=== PATIENT | female | born 1990 | race Caucasian/White ===

== ENCOUNTER 2020-09-28 23:37 | Emergency (ER) | payer MEDICAID ==
[2020-09-29] MEDS ORDERED: Acetaminophen/oxyCODONE 325-5 MG Tab PO ONE (00:39)
[2020-09-29] MEDS ORDERED: Ondansetron 4 MG Tab.DIS ONE (01:24)
--- NOTE | 2020-09-29 02:31 | EDM.PDOC ---
ED HPI GENERAL MEDICAL PROBLEM - General Chief Complaint: Neurological Problem Stated Complaint: PAIN IN THROAT Time Seen by Provider: 09/29/20 00:30 Source of Information: Reports: Patient, Family History Limitations: Reports: No Limitations - History of Present Illness INITIAL COMMENTS - FREE TEXT/NARRATIVE: Patient is a 30-year-old female who presents complaining of left-sided neck pain that has been present for the past month after she had her left vagal nerve stimulator battery change. Patient was told by the surgeon that he may have had the wires too tight and she is worried that one of the wires may have broke and she was told if that were to happen this could puncture a artery so she should immediately come to the emergency department for evaluation. Patient thinks there may be slight swelling to the area and is complaining of pain that has been there again for the last 4 weeks. She states pain is worse with movement. She denies any trouble swallowing or any difficulty breathing. She did have a seizure earlier today which she states she has not had an a long time because the vagal stimulator has been doing its job. Her neurosurgeon advised her to m anually trigger the vagal stimulator until he follows up with her and make some changes to it. Onset: Unknown/Unsure Duration: Getting Worse Location: Reports: Neck Quality: Reports: Ache, Pressure Severity: Moderate Improves with: Reports: Rest Worsens with: Reports: Movement Associated Symptoms: Reports: No Other Symptoms Anterior Neck Pain Score (Numeric/FACES): 8 - Related Data Allergies Allergy/AdvReac Type Severity Reaction Status Date / Time latex Allergy Anaphylactic Verified 09/29/20 00:38 Shock sulfamethoxazole Allergy Rash Verified 09/29/20 00:40 [From ] trimethoprim [From ] Allergy Rash Verified 09/29/20 00:40 Home Meds: Home Meds ClonazePAM [KlonoPIN] 0.5 mg PO TID PRN 09/29/20 [History] SUMAtriptan succinate [Imitrex] 100 mg PO BID PRN 09/29/20 [History] Zonisamide [Zonegran] 400 mg PO BID 09/29/20 [History] Past Medical History Neurological History: Reports: CVA, Migraines, Seizure - Infectious Disease History Infectious Disease History: Reports: Novel Coronavirus - Past Surgical History Neurological Surgical History: Reports: Other (See Below) Other Neurological Surgeries/Procedures: Vagal Nerve Stimulator implanted Social & Family History - Family History Family Medical History: No Pertinent Family History - Tobacco Use Tobacco Use Status *Q: Never Tobacco User Second Hand Smoke Exposure: No - Caffeine Use Caffeine Use: Reports: Energy Drinks - Recreational Drug Use Recreational Drug Use: No ED ROS GENERAL - Review of Systems Review Of Systems: Comprehensive ROS is negative, except as noted in HPI. - Physical Exam Exam: See Below Exam Limited By: No Limitations General Appearance: Alert, No Apparent Distress Neck: Supple, Full Range of Motion, Tender Lateral. No: Carotid Bruit, Lymph adenopathy (L) Respiratory/Chest: No Respiratory Distress Cardiovascular: Regular Rate, Rhythm Neuro Exam (Abbreviated): Alert, Oriented Extremities: Normal Inspection Psychiatric: Normal Affect, Normal Mood Skin Exam: Warm, Dry, Normal Color Course - Vital Signs Text/Narrative:: Soft tissue plain film of her neck shows that her left vagal nerve stimulator as all of its leads intact. There is no swelling in the area. These leads are extremely thin approximately the size of a horse hair. Patient had been given pain medicine earlier and she is informed that the leads are intact and I will give her some additional pain medicine to go home with until she can follow-up with her neurosurgeon. She will return to ER if her symptoms are worse. Last Recorded V/S: Last Vital Signs Temp 97.1 F 09/29/20 00:37 Pulse 69 09/29/20 00:37 Resp 14 09/29/20 00:37 BP 118/83 09/29/20 00:37 Pulse Ox 100 09/29/20 00:37 - Orders/Labs/Meds Orders: Active Orders 24 hr Category Date Time Status Neck Soft Tissue [CR] Stat Exams 09/29/20 01:28 Taken Meds: Medications Discontinued Medications Generic Name Dose Route Start Last Admin Trade Name Jayesh PRN Reason Stop Dose Admin Ondansetron HCl Confirm 09/29/20 01:24 09/29/20 01:27 Ondansetron 4 Mg Tab.Dis Administered 09/29/20 01:25 4 mg Dose Administration 4 mg .ROUTE .STK-MED ONE Oxycodone/Acetaminophen 1 tab 09/29/20 00:39 09/29/20 00:47 Acetaminophen/Oxycodone 325-5 Mg Tab PO 09/29/20 00:40 1 tab ONETIME ONE Administration Departure - Departure Time of Disposition: 02:31 Disposition: Home, Self-Care 01 Condition: Good Clinical Impression: Neck pain on left side, Seizure disorder - Discharge Information Instructions: Epilepsy, [id number] Referrals: PCP,Not In Area [Primary Care Provider] - Additional Instructions: Naprosyn with meals. Dewey as needed. Follow-up with neurosurgeon if symptoms continue. Return to ER if worse. Sepsis Event Note (ED) - Evaluation Sepsis Screening Result: No Definite Risk - Focused Exam Vital Signs: Vital Signs Temp Pulse Resp BP Pulse Ox 09/29/20 00:37 97.1 F 69 14 118/83 100 - My Orders Last 24 Hours: My Active Orders 09/29/20 01:28 Neck Soft Tissue [CR] Stat - Assessment/Plan Last 24 Hours: My Active Orders 09/29/20 01:28 Neck Soft Tissue [CR] Stat
--- NOTE | 2020-09-29 08:52 | CR ---
Neck: Lateral and AP view of the neck was obtained. Comparison: No prior studies are available to determine stability of this finding. Findings: Electrostimulating device is noted within the left neck. Slightly abnormal curvature of the cervical spine is seen possibly due to muscle spasm. No abnormal calcifications or soft tissue abnormality is appreciated. Impression: 1. Electrostimulating device within the left neck. 2. Abnormal curvature of the cervical spine possibly due to muscle spasm. Please correlate with the patient's symptoms. Diagnostic code #2 I mostly agree with preliminary report from [facility], finalized on 09/29/20, 3:10 AM CDT, code 2
== END 2020-09-29 02:40 | disposition home or self-care (01) ==
LOC: JD.ED 23:37
DX: M54.2 Cervicalgia (principal); G40.909 Epilepsy, unspecified, not intractable, without status epilepticus; Z86.16 Personal history of COVID-19; Z91.040 Latex allergy status; Z88.1 Allergy status to other antibiotic agents
CPT/HCPCS: 70360; 99283; A9270